=== PATIENT | male | born 1975 | race Two or more races ===

== ENCOUNTER 2024-04-26 09:45 | Emergency (ER) | payer OTHER ==
[~2024-04-26] VITALS: Ht 182.9 cm; Wt 83.9 kg
[2024-04-26] MEDS ORDERED: COZAAR100 MG (09:50)
[2024-04-26] MEDS ORDERED: ORPHENADRINE CITRATE 30 MG/ML AMPUL IM STA (10:31)
[2024-04-26] MEDS ORDERED: KETOROLAC TROMETHAMINE 60 MG VIAL IM STA (10:31)
[2024-04-26] MEDS ORDERED: ORPHENADRINE CITRATE 30 MG/ML AMPUL ONE (10:45)
[2024-04-26] MEDS ORDERED: KETOROLAC TROMETHAMINE 60 MG VIAL IM ONE (10:45)
[2024-04-26] MEDS ORDERED: NORFLEX100MG PO (11:33)
[2024-04-26] MEDS ORDERED: DICLOFENAC POTA50 MG PO (11:33)
[2024-04-26] MEDS ORDERED: MEDROLPACK PO (11:33)
== END 2024-04-26 12:07 | disposition home or self-care (01) ==
LOC: ER 09:48
DX: M54.2 Cervicalgia (principal); M54.50 Low back pain, unspecified; V43.52XA Car driver injured in collision with other type car in traffic accident, initial encounter; Y93.89 Activity, other specified; Y92.413 State road as the place of occurrence of the external cause; I10 Essential (primary) hypertension